=== PATIENT | female | born 1990 | race American Indian/Alaskan Native ===

== ENCOUNTER 2020-05-18 12:14 | Emergency (ER) | payer SELFPAY ==
[2020-05-18 12:59] VITALS: BP 123/75
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
[2020-05-18] MEDS ORDERED: KETOROLAC 30 MG/1 ML INJ IM ONE (13:08)
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
[2020-05-18] MEDS ORDERED: KETOROLAC 30 MG/1 ML INJ ONE (15:30)
== END 2020-05-18 15:42 | disposition home or self-care (01) ==
LOC: ED 12:14
DX: S16.1XXA Strain of muscle, fascia and tendon at neck level, initial encounter (principal); S39.012A Strain of muscle, fascia and tendon of lower back, initial encounter; V49.49XA Driver injured in collision with other motor vehicles in traffic accident, initial encounter; Y93.89 Activity, other specified; Y92.488 Other paved roadways as the place of occurrence of the external cause; Y99.8 Other external cause status
CPT/HCPCS: 72040; 72100; 96372; 99283; J1885

== ENCOUNTER 2020-08-05 04:44 | Emergency (ER) | payer OTHER ==
[2020-08-05 06:21] VITALS: BP 117/78
--- NOTE | 2020-08-05 06:25 | Event Note ---
ED Screening Note Date of service: 08/05/20 Time: 06:25 ED Screening Note: Pt complains of left knee pain after fall injury yesterday This initial assessment/diagnostic orders/clinical plan/treatment(s) is/are subject to change based on patients health status, clinical progression and re-assessment by fellow clinical providers in the ED. Further treatment and workup at subsequent clinical providers discretion. Patient/guardian urged not to elope from the ED as their condition may be serious if not clinically assessed and managed. Initial orders include: xray
--- NOTE | 2020-08-05 07:02 | XRay Report ---
LEFT KNEE 3 VIEWS INDICATION / CLINICAL INFORMATION: pain after fall injury COMPARISON: None available. FINDINGS: BONES / JOINT(S): No acute fracture or subluxation. No significant arthritis. SOFT TISSUES: No significant abnormality. ADDITIONAL FINDINGS: None. Signer Name: Edu Leonard MD Signed: 08/05/2020 6:58 AM Workstation Name: [id number]
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
== END 2020-08-05 08:30 | disposition home or self-care (01) ==
LOC: ED 04:44
DX: S86.912A Strain of unspecified muscle(s) and tendon(s) at lower leg level, left leg, initial encounter (principal); Z79.899 Other long term (current) drug therapy; Z98.890 Other specified postprocedural states; V89.9XXA Person injured in unspecified vehicle accident, initial encounter; Y93.89 Activity, other specified; Y92.89 Other specified places as the place of occurrence of the external cause; Y92.410 Unspecified street and highway as the place of occurrence of the external cause; Y99.8 Other external cause status